=== PATIENT | female | born 1980 | race Caucasian/White ===

== ENCOUNTER 2021-09-07 00:23 | Emergency (ER) | payer BC ==
[~2021-09-07] VITALS: Ht 177.8 cm; Wt 59.0 kg
[2021-09-07 00:36] VITALS: BP 123/71
== END 2021-09-07 00:54 | disposition home or self-care (01) ==
LOC: ER 00:35
DX: R10.84 Generalized abdominal pain (principal); Z87.19 Personal history of other diseases of the digestive system

== ENCOUNTER 2021-09-09 01:32 | Emergency (ER) | payer BC ==
[~2021-09-09] VITALS: Ht 177.8 cm; Wt 59.0 kg
[2021-09-09 02:04] VITALS: BP 119/70
--- NOTE | 2021-09-09 02:11 | NUR ---
urine collected and sent to lab
[2021-09-09 02:59] LABS: BILIRUBIN,URINE SMALL (NEGATIVE); COLOR,URINE YELLOW (YELLOW); LEUKOCYTE ESTERASE ,URINE NEGATIVE (NEGATIVE); NITRITE, URINE NEGATIVE (NEGATIVE); PROTEIN,URINE 30 mg/dl (NEGATIVE); UGLUCOSE NEGATIVE (NEGATIVE); UROBILINOGEN,URINE 0.2 EU/dL (0.2)
== END 2021-09-09 03:52 | disposition home or self-care (01) ==
LOC: ER 01:35
DX: R30.0 Dysuria (principal); Z87.19 Personal history of other diseases of the digestive system; Z60.2 Problems related to living alone
CPT/HCPCS: 84703-TC